=== PATIENT | female | born 1950 | race Caucasian/White ===

== ENCOUNTER 2024-08-26 12:13 | Inpatient (IN) | payer MEDICARE ==
[~2024-08-26] VITALS: Ht 162.6 cm; Wt 66.7 kg
[2024-08-26 12:53] LABS: BASOPHILS # (AUTO) 0.1 X10'3 (0-0.2); BASOPHILS % (AUTO) 1.2 % (0-1); EOSINOPHILS # (AUTO) 0.1 X10'3 (0-0.9); EOSINOPHILS % (AUTO) 0.7 % (0-6); HEMATOCRIT 36.2 % (35.0-45.0); HEMOGLOBIN 11.3 g/dl (12.0-16.0); LYMPHOCYTES # (AUTO) 0.9 X10'3 (1.1-4.8); LYMPHOCYTES % (AUTO) 12.2 % (21-51); MEAN CORPUSCULAR HEMOGLOBIN 24.7 PG (27.0-31.0); MEAN CORPUSCULAR HGB CONC 31.4 g/dL (33.0-36.5); MEAN CORPUSCULAR VOLUME 78.7 FL (78-98); MEAN PLATELET VOLUME 7.7 FL (7.4-10.4); MONOCYTES # (AUTO) 0.7 X10'3 (0-0.9); MONOCYTES % (AUTO) 10.4 % (2-12); NEUTROPHILS # (AUTO) 5.4 X10'3 (1.8-7.7); NEUTROPHILS % (AUTO) 75.5 % (42-75); PLATELET COUNT 303 X10'3 (140-440); RED BLOOD COUNT 4.59 X10'6 (4.20-5.60); RED CELL DISTRIBUTION WIDTH 18.8 % (11.5-14.5); WHITE BLOOD COUNT 7.2 X10'3 (4.5-11.0)
[2024-08-26 13:14] LABS: ALANINE AMINOTRANSFERASE 17 U/L (12-78); ALBUMIN 3.7 G/DL (3.4-5.0); ALKALINE PHOSPHATASE 123 IU/L (46-116); ANION GAP 9 (8-16); ASPARTATE AMINO TRANSFERASE 24 U/L (10-37); BLOOD UREA NITROGEN 20 MG/DL (7-18); CALCIUM 8.8 MG/DL (8.5-10.1); CHLORIDE 101 MMOL/L (99-107); CREATININE 1.54 MG/DL (0.40-0.90); GLUCOSE 124 MG/DL (70-104); POTASSIUM 4.9 MMOL/L (3.5-5.1); SODIUM 135 MMOL/L (135-145); TOTAL CARBON DIOXIDE 24.9 MMOL/L (24-32); TOTAL PROTEIN 7.4 G/DL (6.4-8.2); eCRCL 27 ML/MIN; eGFR 33 ML/MIN
[2024-08-26 13:19] LABS: PRO BRAIN NATRIURETIC PEPTIDE 9600 PG/ML (0-125)
[2024-08-26 13:49] LABS: D-DIMER 5.82 MG/L FEU (0-0.50)
[2024-08-26 13:57] LABS: FREE T4 (FREE THYROXINE) 0.89 NG/DL (0.73-1.40); MAGNESIUM 1.6 MG/DL (1.5-2.4); THYROID STIMULATING HORMONE 0.45 ulU/ml (0.34-4.50)
[2024-08-26] MEDS ORDERED: iohexol 350MG/ML 100ml bottle IV ONE (15:27)
[2024-08-26] MEDS ORDERED: methylPREDNISolone sod succ/PF 40mg inj. IV ONE (15:55)
[2024-08-26] MEDS ORDERED: methylPREDNISolone sod succ 125mg/2ml vial IV ONE (15:55)
[2024-08-26] MEDS ORDERED: ipratropium/albuterol 3ml nebule NEB PRN (15:55)
[2024-08-26] MEDS: normal saline 500ml IV soln 500 ML IV ONE (15:59)
[2024-08-26] MEDS ORDERED: bisacodyl 10mg suppository rectal RC PRN (16:00)
[2024-08-26] MEDS ORDERED: acetaminophen 325mg tablet PO PRN ×2 (16:00)
[2024-08-26] MEDS ORDERED: magnesium sulf-water 4G/100mL 100 ML IV PRN (16:00)
[2024-08-26] MEDS ORDERED: magnesium hydroxide 30ml (MOM) UD suspension PO PRN (16:00)
[2024-08-26] MEDS ORDERED: HYDROcodone/acetaminophen 5mg/325mg tablet PO PRN (16:00)
[2024-08-26] MEDS ORDERED: mag hydrox/Alum hydrox/simeth 30ml oral suspension PO PRN (16:00)
[2024-08-26] MEDS ORDERED: diphenhydrAMINE 25mg capsule PO PRN (16:00)
[2024-08-26] MEDS ORDERED: HYDROcodone/acetaminophen 10/325mg tab PO PRN (16:00)
[2024-08-26] MEDS ORDERED: ondansetron/PF 4mg/2ml inj IV PRN (16:00)
[2024-08-26] MEDS ORDERED: potassium Cl 20 mEq SR tablet PO PRN ×2 (16:00)
[2024-08-26] MEDS ORDERED: morphine 2 MG/ML inj. syringe IV PRN ×2 (16:00)
[2024-08-26] MEDS ORDERED: acetaminophen 650mg rectal suppository RC PRN (16:00)
[2024-08-26] MEDS: methylPREDNISolone sod succ/PF 40mg inj. IV SCH (16:00)
[2024-08-26] MEDS ORDERED: potassium Cl 40MEQ/1/2NS 520ml 520 ML IV PRN (16:00)
[2024-08-26] MEDS ORDERED: magnesium sulf-water 2g/50mL 50 ML IV PRN (16:00)
[2024-08-26] MEDS: PERFLUTREN PROTEIN-A MICROSPHR (Optison) 0.22 MG/ML 3ML VIAL IV ONE (16:18)
[2024-08-26] MEDS: CefTRIAXone/D5W-Rocephin 1gm 50 ML IV SCH (16:44)
[2024-08-26] MEDS: azithromycin 250mg tablet PO SCH (16:45)
[2024-08-26] MEDS: normal saline 1000ml 1,000 ML IV SCH (16:45)
[2024-08-26] MEDS: methylPREDNISolone sod succ 125mg/2ml vial IV ONE (16:46)
[2024-08-26] MEDS: heparin 10,000 units/1 ML INJ IV ONE (17:05)
[2024-08-26] MEDS: MESSAGE TO NURSING IV ONE (17:09)
[2024-08-26] MEDS: heparin 25,000 UNIT/250ml bag 250 ML IV PRN (17:09)
[2024-08-26 17:13] LABS: HEMOGLOBIN A1C 5.9 % (4.5-6.2)
[2024-08-26 17:24] LABS: APTT 25 SECONDS (22-32); INR 1.1 INR; PROTHROMBIN TIME 11.2 SECONDS (9.0-12.0)
[2024-08-26] MEDS ORDERED: LISI20TA28 PO (18:22)
[2024-08-26] MEDS ORDERED: FLUT1BLS4 PO (18:22)
[2024-08-26 19:17] LABS: CREATININE 1.49 MG/DL (0.40-0.90); SODIUM 133 MMOL/L (135-145); eCRCL 28 ML/MIN; eGFR 34 ML/MIN
[2024-08-26 19:25] LABS: BILIRUBIN,URINE NEGATIVE (Neg); CLARITY,URINE CLEAR (Clear); COLOR,URINE YELLOW (Yellow); GLUCOSE, URINE NEGATIVE (Neg); KETONES,URINE TRACE mg/dl (Neg); LEUKOCYTE ESTERASE ,URINE NEGATIVE (Neg); NITRITES, URINE NEGATIVE (Neg); OCCULT BLOOD,URINE TRACE-INTACT (Neg); PH,URINE 5.5 (4.8-8.0); PROTEIN,URINE 100 mg/dl (Neg); UA COLLECTION TYPE NON-SPECIFIED; UROBILINOGEN,URINE 0.2 E.U/dL (0.2-1.0)
[2024-08-26 19:26] LABS: BACTERIA,URINE FEW /HPF (Neg); RBC,URINE 0-2 /HPF (0-2); SQUAMOUS EPITHELIAL CELL,UR FEW /LPF (FEW); WBC,URINE 0-4 /HPF (0-4)
[2024-08-26 19:39] LABS: SODIUM,URINE RANDOM 62 MEQ/L; TOTAL PROTEIN,URINE RANDOM 104.9 MG/DL; URINE AMPHETAMINE SCREEN NEGATIVE (Neg); URINE BARBITUATE SCREEN NEGATIVE (Neg); URINE BENZODIAZEPINES SCREEN NEGATIVE (Neg); URINE CANNABINOID SCREEN NEGATIVE (Neg); URINE COCAINE SCREEN NEGATIVE (Neg); URINE METHADONE SCREEN NEGATIVE (Neg); URINE OPIATE SCREEN NEGATIVE (Neg); URINE PHENCYCLIDINE SCREEN NEGATIVE (Neg)
[2024-08-26 19:49] LABS: UA EOSINOPHILS NO EOS /HPF
[2024-08-26] MEDS: ipratropium/albuterol 3ml nebule NEB SCH (19:53)
[2024-08-26 19:54] VITALS: PULSE 118; RESP 18; O2SAT 94
[2024-08-26] MEDS: K and/or MAG REPLACEMENT MC SCH (20:00)
[2024-08-26] MEDS ORDERED: heparin, porcine 5000 units/ml vial SQ SCH (20:00)
[2024-08-26 20:06] LABS: OSMOLALITY 291.5 MOSM/K (280-300)
[2024-08-26 20:07] VITALS: PULSE 118; RESP 20
[2024-08-26] MEDS: docusate sod 100mg capsule PO SCH (20:25)
[2024-08-26] MEDS: lisinopril 10 MG tablet PO SCH (20:26)
[2024-08-26] MEDS: furosemide 10 MG/1 ML 10ml inj IV SCH (20:31)
[2024-08-26 20:33] LABS: OSMOLALITY UA 611.5 MOSM/K (50-1400)
[2024-08-26] MEDS ORDERED: LORazepam 2 mg/ml vial IV PRN (20:45)
[2024-08-26] MEDS ORDERED: LORazepam 1 MG tablet PO PRN (20:45)
[2024-08-26] MEDS ORDERED: haloperidol 5mg tablet PO PRN (20:45)
[2024-08-26] MEDS ORDERED: haloperidol lactate 5mg/ml inj IM PRN (20:45)
[2024-08-26] MEDS: thiamine 100mg/ml 2ml inj. IV SCH (21:44)
[2024-08-26 22:30] VITALS: BP 150/82; PULSE 124; RESP 15; TEMP 97.9; O2SAT 94
[2024-08-26 23:36] VITALS: PULSE 103; RESP 18; O2SAT 94
[2024-08-26 23:48] VITALS: PULSE 122; RESP 20
[2024-08-27] VITALS (17 sets, daily range): BP systolic 92–149; BP diastolic 63–94; PULSE 96–160; RESP 14–23; TEMP 97–98; O2SAT 94–99
[2024-08-27] MEDS: metoprolol tartrate 1mg/ml inj IV SCH (00:57)
[2024-08-27] MEDS: MESSAGE TO NURSING IV ONE ×4 (01:06→21:15)
[2024-08-27 07:05] LABS: BASOPHILS % (AUTO) 0.5 % (0-1); EOSINOPHILS % (AUTO) 0.1 % (0-6); HEMATOCRIT 34.7 % (35.0-45.0); HEMOGLOBIN 10.8 g/dl (12.0-16.0); LYMPHOCYTES # (AUTO) 0.3 X10'3 (1.1-4.8); LYMPHOCYTES % (AUTO) 7.5 % (21-51); MEAN CORPUSCULAR HEMOGLOBIN 24.6 PG (27.0-31.0); MEAN CORPUSCULAR HGB CONC 31.2 g/dL (33.0-36.5); MEAN PLATELET VOLUME 7.7 FL (7.4-10.4); MONOCYTES # (AUTO) 0.1 X10'3 (0-0.9); MONOCYTES % (AUTO) 2.1 % (2-12); NEUTROPHILS # (AUTO) 3.4 X10'3 (1.8-7.7); NEUTROPHILS % (AUTO) 89.8 % (42-75); PLATELET COUNT 262 X10'3 (140-440); RED CELL DISTRIBUTION WIDTH 18.5 % (11.5-14.5); WHITE BLOOD COUNT 3.8 X10'3 (4.5-11.0)
[2024-08-27 07:08] LABS: INR 1.2 INR
[2024-08-27 07:18] LABS: PROTHROMBIN TIME 12.1 SECONDS (9.0-12.0)
[2024-08-27 07:42] LABS: ALANINE AMINOTRANSFERASE 12 U/L (12-78); ALBUMIN 3.4 G/DL (3.4-5.0); ALBUMIN/GLOBULIN RATIO 0.9 (1.1-1.5); ALKALINE PHOSPHATASE 109 IU/L (46-116); ANION GAP 13 (8-16); ASPARTATE AMINO TRANSFERASE 25 U/L (10-37); BILIRUBIN,TOTAL 0.8 MG/DL (0.1-1.0); BLOOD UREA NITROGEN 23 MG/DL (7-18); BUN/CREATININE RATIO 12.9 (10.0-20.0); CALCIUM 8.8 MG/DL (8.5-10.1); CHLORIDE 98 MMOL/L (99-107); CHOL/HDL RATIO 2.4 (0.00-4.99); CHOLESTEROL 156 MG/DL (0-200); CREATININE 1.78 MG/DL (0.40-0.90); GLUCOSE 195 MG/DL (70-104); HDL CHOLESTEROL 64 MG/DL (35-60); LDL CHOLESTEROL 80 MG/DL (50-100); LIPASE 44 U/L (16-77); MAGNESIUM 1.4 MG/DL (1.5-2.4); PHOSPHORUS 4.3 MG/DL (2.3-4.5); POTASSIUM 4.4 MMOL/L (3.5-5.1); SODIUM 133 MMOL/L (135-145); TOTAL CARBON DIOXIDE 21.9 MMOL/L (24-32); TOTAL PROTEIN 7.2 G/DL (6.4-8.2); TRIGLYCERIDES 51 MG/DL (20-135); eCRCL 24 ML/MIN; eGFR 28 ML/MIN
[2024-08-27] MEDS: EMPAGLIFLOZIN 10 MG TABLET PO SCH (08:39)
[2024-08-27] MEDS: multivitamins, therapeutics tablet PO SCH (08:40)
[2024-08-27] MEDS: metoprolol succinate 25mg (24-HOUR) SR. Tablet PO SCH (08:40)
[2024-08-27] MEDS: folic acid 1mg/0.2ml inj IV SCH (08:41)
[2024-08-27] MEDS: magnesium Cl slow-release 64mg tablet PO PRN (08:57)
[2024-08-27 11:27] LABS: BFSOURCE LEFT PLEURAL FLD; PLEURAL FLUID PH 7.416 (7.63-7.65)
[2024-08-27 11:43] LABS: GLUCOSE,BODY FLUID 224 MG/DL; LDH,BODY FLUID 40 U/L
[2024-08-27 12:06] LABS: LYMPHOCYTES,BODY FLUID 32 %; MONOCYTES,BODY FLUID 63 %; NEUTROPHILS,BODY FLUID 5 %
[2024-08-27 12:08] LABS: BFAPPEAR HAZY; BFCOLOR YELLOW; BFSOURCE LEFT PLEURAL FLD; BFVOLUME 46 ML; TOTAL PROTEIN,BODY FLUID < 2.0 G/DL
[2024-08-27 12:09] LABS: BF RBC COUNT 5050 /CU MM; BF WBC COUNT 675 /CU MM (0-1000)
[2024-08-27] MEDS ORDERED: METH-375 PO (14:31)
[2024-08-27] MEDS ORDERED: ASPI-1397 PO (14:31)
[2024-08-27] MEDS: ipratropium/albuterol 3ml nebule NEB SCH (15:54)
[2024-08-27] MEDS ORDERED: metoprolol succinate 25mg (24-HOUR) SR. Tablet PO SCH (19:20)
[2024-08-27] MEDS: metoprolol tartrate 1mg/ml inj IV ONE (19:43)
[2024-08-27] MEDS: metoprolol succinate 25mg (24-HOUR) SR. Tablet PO ONE (19:44)
[2024-08-27] MEDS ORDERED: methimazole 5mg tablet PO SCH (20:16)
[2024-08-27] MEDS ORDERED: aspirin 81mg, enteric-coated 1 TAB TABLET.DR PO SCH (20:17)
[2024-08-27] MEDS: aspirin 81mg, enteric-coated 1 TAB TABLET.DR PO SCH (21:58)
[2024-08-27] MEDS: methimazole 5mg tablet PO SCH (22:00)
[2024-08-27] MEDS: furosemide 40mg/4ml inj IV SCH (22:07)
[2024-08-28] VITALS (13 sets, daily range): BP systolic 96–114; BP diastolic 35–65; PULSE 51–129; RESP 14–20; TEMP 97.4–97.9; O2SAT 92–99
[2024-08-28 03:01] LABS: BASOPHILS % (AUTO) 0.4 % (0-1); EOSINOPHILS % (AUTO) 0 % (0-6); HEMATOCRIT 32.4 % (35.0-45.0); HEMOGLOBIN 10.2 g/dl (12.0-16.0); LYMPHOCYTES # (AUTO) 0.3 X10'3 (1.1-4.8); LYMPHOCYTES % (AUTO) 2.8 % (21-51); MEAN CORPUSCULAR HEMOGLOBIN 24.7 PG (27.0-31.0); MEAN CORPUSCULAR HGB CONC 31.6 g/dL (33.0-36.5); MEAN CORPUSCULAR VOLUME 78.2 FL (78-98); MEAN PLATELET VOLUME 7.9 FL (7.4-10.4); MONOCYTES # (AUTO) 0.5 X10'3 (0-0.9); MONOCYTES % (AUTO) 4.9 % (2-12); NEUTROPHILS # (AUTO) 9.8 X10'3 (1.8-7.7); NEUTROPHILS % (AUTO) 91.9 % (42-75); PLATELET COUNT 250 X10'3 (140-440); RED BLOOD COUNT 4.14 X10'6 (4.20-5.60); RED CELL DISTRIBUTION WIDTH 18.7 % (11.5-14.5); WHITE BLOOD COUNT 10.6 X10'3 (4.5-11.0)
[2024-08-28 03:14] LABS: INR 1.2 INR; PROTHROMBIN TIME 12.1 SECONDS (9.0-12.0)
[2024-08-28 03:18] LABS: ALANINE AMINOTRANSFERASE 17 U/L (12-78); ALBUMIN 3.6 G/DL (3.4-5.0); ALBUMIN/GLOBULIN RATIO 1.1 (1.1-1.5); ALKALINE PHOSPHATASE 100 IU/L (46-116); ANION GAP 10 (8-16); ASPARTATE AMINO TRANSFERASE 17 U/L (10-37); BILIRUBIN,TOTAL 0.6 MG/DL (0.1-1.0); BLOOD UREA NITROGEN 28 MG/DL (7-18); BUN/CREATININE RATIO 13.8 (10.0-20.0); CALCIUM 8.3 MG/DL (8.5-10.1); CHLORIDE 99 MMOL/L (99-107); CREATININE 2.03 MG/DL (0.40-0.90); GLUCOSE 150 MG/DL (70-104); LIPASE 40 U/L (16-77); MAGNESIUM 1.6 MG/DL (1.5-2.4); SODIUM 135 MMOL/L (135-145); TOTAL CARBON DIOXIDE 26.4 MMOL/L (24-32); eCRCL 22 ML/MIN; eGFR 24 ML/MIN
[2024-08-28] MEDS: MESSAGE TO NURSING IV ONE ×4 (03:45→21:44)
[2024-08-28] MEDS: metoprolol succinate 25mg (24-HOUR) SR. Tablet PO SCH (08:29)
[2024-08-28] MEDS: ipratropium/albuterol 3ml nebule NEB SCH (14:49)
[2024-08-28] MEDS: heparin 10,000 units/1 ML INJ IV PRN (16:19)
[2024-08-28 19:12] LABS: LACTATE DEHYDROGENASE 190 U/L (81-234)
[2024-08-29] VITALS (17 sets, daily range): BP systolic 111–129; BP diastolic 50–83; PULSE 50–112; RESP 12–20; TEMP 97.1–97.7; O2SAT 94–98
[2024-08-29 03:53] LABS: BASOPHILS % (AUTO) 0 % (0-1); EOSINOPHILS % (AUTO) 0 % (0-6); HEMATOCRIT 32.5 % (35.0-45.0); HEMOGLOBIN 10.2 g/dl (12.0-16.0); LYMPHOCYTES # (AUTO) 0.3 X10'3 (1.1-4.8); LYMPHOCYTES % (AUTO) 2.6 % (21-51); MEAN CORPUSCULAR HEMOGLOBIN 24.4 PG (27.0-31.0); MEAN CORPUSCULAR HGB CONC 31.3 g/dL (33.0-36.5); MEAN PLATELET VOLUME 7.9 FL (7.4-10.4); MONOCYTES # (AUTO) 0.4 X10'3 (0-0.9); MONOCYTES % (AUTO) 3.6 % (2-12); NEUTROPHILS # (AUTO) 9.4 X10'3 (1.8-7.7); NEUTROPHILS % (AUTO) 93.8 % (42-75); PLATELET COUNT 219 X10'3 (140-440); RED BLOOD COUNT 4.17 X10'6 (4.20-5.60); RED CELL DISTRIBUTION WIDTH 18.9 % (11.5-14.5)
[2024-08-29 04:06] LABS: INR 1.2 INR
[2024-08-29 04:08] LABS: ALANINE AMINOTRANSFERASE 19 U/L (12-78); ALBUMIN 3.5 G/DL (3.4-5.0); ALBUMIN/GLOBULIN RATIO 1.1 (1.1-1.5); ALKALINE PHOSPHATASE 89 IU/L (46-116); ANION GAP 9 (8-16); ASPARTATE AMINO TRANSFERASE 21 U/L (10-37); BILIRUBIN,TOTAL 0.5 MG/DL (0.1-1.0); BLOOD UREA NITROGEN 37 MG/DL (7-18); BUN/CREATININE RATIO 17.5 (10.0-20.0); CALCIUM 7.9 MG/DL (8.5-10.1); CHLORIDE 96 MMOL/L (99-107); CREATININE 2.12 MG/DL (0.40-0.90); GLUCOSE 142 MG/DL (70-104); LIPASE 29 U/L (16-77); MAGNESIUM 1.7 MG/DL (1.5-2.4); PHOSPHORUS 5.4 MG/DL (2.3-4.5); POTASSIUM 3.9 MMOL/L (3.5-5.1); SODIUM 133 MMOL/L (135-145); TOTAL CARBON DIOXIDE 27.9 MMOL/L (24-32); TOTAL PROTEIN 6.8 G/DL (6.4-8.2); eCRCL 21 ML/MIN; eGFR 23 ML/MIN
[2024-08-29] MEDS: metoprolol tartrate 1mg/ml inj IV ONE ×2 (04:08→04:56)
[2024-08-29] MEDS: digoxin 250mcg/ml 2ml ampule IV ONE ×3 (11:55→23:04)
[2024-08-29 18:16] LABS: CREATININE 2.03 MG/DL (0.40-0.90); POTASSIUM 3.5 MMOL/L (3.5-5.1); eCRCL 22 ML/MIN; eGFR 24 ML/MIN
[2024-08-29 19:05] LABS: DIGOXIN 10.2 NG/ML (0.9-1.9)
[2024-08-29] MEDS: apixaban 5mg tablet PO SCH (19:10)
[2024-08-29] MEDS: furosemide 20 MG/2 ML vial IV SCH (19:10)
[2024-08-30 01:17] LABS: BASOPHILS % (AUTO) 0.1 % (0-1); EOSINOPHILS % (AUTO) 0 % (0-6); HEMATOCRIT 31.2 % (35.0-45.0); HEMOGLOBIN 9.7 g/dl (12.0-16.0); LYMPHOCYTES # (AUTO) 0.2 X10'3 (1.1-4.8); LYMPHOCYTES % (AUTO) 1.9 % (21-51); MEAN CORPUSCULAR HEMOGLOBIN 24.1 PG (27.0-31.0); MEAN CORPUSCULAR VOLUME 77.6 FL (78-98); MEAN PLATELET VOLUME 7.9 FL (7.4-10.4); MONOCYTES # (AUTO) 0.5 X10'3 (0-0.9); MONOCYTES % (AUTO) 6.4 % (2-12); NEUTROPHILS # (AUTO) 7.7 X10'3 (1.8-7.7); NEUTROPHILS % (AUTO) 91.6 % (42-75); PLATELET COUNT 197 X10'3 (140-440); RED BLOOD COUNT 4.01 X10'6 (4.20-5.60); RED CELL DISTRIBUTION WIDTH 18.6 % (11.5-14.5); WHITE BLOOD COUNT 8.4 X10'3 (4.5-11.0)
[2024-08-30 01:35] LABS: ALANINE AMINOTRANSFERASE 21 U/L (12-78); ALBUMIN 3.3 G/DL (3.4-5.0); ALBUMIN/GLOBULIN RATIO 1.1 (1.1-1.5); ALKALINE PHOSPHATASE 81 IU/L (46-116); ANION GAP 10 (8-16); ASPARTATE AMINO TRANSFERASE 23 U/L (10-37); BILIRUBIN,TOTAL 0.4 MG/DL (0.1-1.0); BLOOD UREA NITROGEN 42 MG/DL (7-18); BUN/CREATININE RATIO 20.2 (10.0-20.0); CALCIUM 7.7 MG/DL (8.5-10.1); CHLORIDE 96 MMOL/L (99-107); CREATININE 2.08 MG/DL (0.40-0.90); GLUCOSE 133 MG/DL (70-104); LIPASE 36 U/L (16-77); MAGNESIUM 1.7 MG/DL (1.5-2.4); PHOSPHORUS 5.3 MG/DL (2.3-4.5); POTASSIUM 3.5 MMOL/L (3.5-5.1); SODIUM 134 MMOL/L (135-145); TOTAL CARBON DIOXIDE 28.5 MMOL/L (24-32); TOTAL PROTEIN 6.3 G/DL (6.4-8.2); eCRCL 21 ML/MIN; eGFR 23 ML/MIN
[2024-08-30 02:31] VITALS: BP 134/68; PULSE 76; RESP 15; TEMP 97.5; O2SAT 94
[2024-08-30 06:00] VITALS: BP 146/67; PULSE 75; RESP 20; TEMP 98.1; O2SAT 96
[2024-08-30 07:44] LABS: INR 1.3 INR; PROTHROMBIN TIME 13.4 SECONDS (9.0-12.0)
[2024-08-30 08:00] VITALS: RESP 16; O2SAT 98
[2024-08-30] MEDS: digoxin 125mcg (0.125mg) tablet PO SCH (08:00)
[2024-08-30] MEDS: spironolactone 25 MG tablet PO SCH (08:00)
[2024-08-30] MEDS: thiamine 100mg tablet PO SCH (08:14)
[2024-08-30 08:27] VITALS: PULSE 83; RESP 18; O2SAT 97
[2024-08-30 08:35] VITALS: PULSE 93; RESP 18
[2024-08-30 11:00] VITALS: BP 141/64; PULSE 79; RESP 16; TEMP 97.9; O2SAT 98
[2024-08-30 12:03] LABS: DIGOXIN 2.2 NG/ML (0.9-1.9)
[2024-08-30] MEDS ORDERED: ASPI-1397 PO (13:12)
[2024-08-30] MEDS ORDERED: FURO-150 PO (13:12)
[2024-08-30] MEDS ORDERED: MULT-25 PO (13:12)
[2024-08-30] MEDS ORDERED: METO-395 PO (13:12)
[2024-08-30] MEDS ORDERED: LAN0.125T PO (13:12)
[2024-08-30] MEDS ORDERED: EMPA10TA PO (13:12)
[2024-08-30] MEDS ORDERED: FOLI1TAB27 PO (13:12)
[2024-08-30] MEDS ORDERED: thiamine tablet PO (13:12)
[2024-08-30] MEDS ORDERED: SPIR25TA PO (13:12)
[2024-08-30] MEDS ORDERED: PRED10TA23 PO (13:12)
[2024-08-30] MEDS ORDERED: APIX5TAB3 PO (13:12)
[2024-08-30] MEDS ORDERED: CEFD300C3 PO (13:12)
[2024-08-31] MEDS ORDERED: folic acid 1mg tablet PO SCH (08:00)
[2024-08-31] MEDS ORDERED: METO-395 PO (11:07)
[2024-08-31] MEDS ORDERED: APIX5TAB3 PO (11:09)
[2024-08-31] MEDS ORDERED: LEVO-65 PO (15:17)
[2024-08-31] MEDS ORDERED: OMEP-271 PO (15:17)
[2024-08-31] MEDS ORDERED: LACT1CAP26 PO (15:17)
== END 2024-08-30 15:55 | disposition home or self-care (01) | DRG 177 ==
LOC: ER 12:14 → ED HOLD 16:03 → PCU 3S 22:14
PROVIDERS: ADMIT Family Medicine; ATTEND Family Medicine
PROC: B32T1ZZ Computerized Tomography (CT Scan) of Left Pulmonary Artery using Low Osmolar Contrast (ICD-10-PCS; 2024-08-26)
PROC: B3201ZZ Computerized Tomography (CT Scan) of Thoracic Aorta using Low Osmolar Contrast (ICD-10-PCS; 2024-08-26)
PROC: B32S1ZZ Computerized Tomography (CT Scan) of Right Pulmonary Artery using Low Osmolar Contrast (ICD-10-PCS; 2024-08-26)
PROC: 0W9B3ZZ Drainage of Left Pleural Cavity, Percutaneous Approach (ICD-10-PCS; principal; 2024-08-27)
DX: J15.69 Pneumonia due to other Gram-negative bacteria (principal); I26.99 Other pulmonary embolism without acute cor pulmonale; I50.23 Acute on chronic systolic (congestive) heart failure; N17.0 Acute kidney failure with tubular necrosis; I42.9 Cardiomyopathy, unspecified; J91.8 Pleural effusion in other conditions classified elsewhere; J44.1 Chronic obstructive pulmonary disease with (acute) exacerbation; J44.0 Chronic obstructive pulmonary disease with (acute) lower respiratory infection; R18.8 Other ascites; J15.9 Unspecified bacterial pneumonia; I11.0 Hypertensive heart disease with heart failure; E05.90 Thyrotoxicosis, unspecified without thyrotoxic crisis or storm; D64.9 Anemia, unspecified; I08.1 Rheumatic disorders of both mitral and tricuspid valves; I37.1 Nonrheumatic pulmonary valve insufficiency; F10.20 Alcohol dependence, uncomplicated; Y90.9 Presence of alcohol in blood, level not specified; Z79.899 Other long term (current) drug therapy; I48.91 Unspecified atrial fibrillation; Z87.891 Personal history of nicotine dependence
CPT/HCPCS: 32555; 36415; 71045; 71275; 80053; 80061; 80162; 80305; 81001; 82565; 82570; 82945; 83036; 83605; 83615; 83690; 83735; 83880; 83930; 83935; 83986; 84100; 84132; 84145; 84156; 84157; 84295; 84300; 84439; 84443; 84480; 84484; 85025; 85379; 85610; 85730; 87040; 87070; 87075; 87077; 87081; 87186; 87207; 89051; 93005; 93306; 93970; 94640; 94760; 99285; G0378; J0696; J1160; J1644; J1940; J2919; J3411; J3490; J7030; J7040; Q9967